=== PATIENT | male | born 1970 | race Caucasian/White ===

== ENCOUNTER 2016-10-17 08:53 | Emergency (ER) | payer OTHER, MEDICAID ==
[2016-10-17 09:08] VITALS: BP 149/89; PULSE 90; RESP 16; TEMP 97.7; O2SAT 94
--- NOTE | 2016-10-17 09:46 | UCPHY ---
H & P Time Seen by Provider: 10/17/16 09:37 Patient Type: Established HPI/ROS: This patient has an injury to the right upper arm. He works as a snow plow min and was using a snow shovel to clear sidewalk walking at a brisk pace and flexing his right arm when he suddenly ran into an immobile object which caused abrupt deceleration of the arm and onset of right upper anterior arm pain. He states the discomfort is moderate initially and now mild but he has difficulty raising his right arm above his head without assistance from the left arm. He has not taken any medications for this element. Occurred last night. ROS: No gross deformity to the shoulder or biceps per patient. He reports no numbness or tingling in the right upper extremity. No other injuries associated with this. 5 point ROS is otherwise negative. Past Medical/Surgical History: Otherwise healthy Smoking Status: Former smoker Physical Exam: Physical Exam Vital signs are normal. General: No acute distress HEENT: Atraumatic. Eyes: Pupils equal and react to light. Extraocular motions are intact. Lungs: No respiratory distress. Cardiac: Brisk capillary refill is intact throughout. Pulses are 2+ and symmetric in the affected extremity. Extremities: Atraumatic and normal except for right arm that exam is notable for minimal tenderness to the mid biceps with no deformity appreciated. There is no shoulder tenderness. He has mild increase in pain with biceps flexion but no deformity again. He is able to a hold his right arm above his head but has difficulty with process of AB duction. No difficulty with flexion. Skin: No rash or pallor. Neuro: Alert and oriented x3 with no sensorimotor deficits. Initial differential diagnosis: Biceps strain, doubt biceps tear, rotator cuff injury Constitutional: Initial Vital Signs Temperature (C) 36.5 C 10/17/16 09:06 Heart Rate 90 10/17/16 09:06 Respiratory Rate 16 10/17/16 09:06 Blood Pressure 149/89 H 10/17/16 09:06 O2 Sat (%) 94 10/17/16 09:06 O2 Delivery Mode Room Air Allergies/Adverse Reactions: PEPHALEXIN Allergy (Unknown, Uncoded 10/17/16 09:08) Unknown Home Medications: Medication Instructions Recorded Nasal [place] 02/07/14 Methocarbamol [Robaxin 750 mg (*)] 750 - 1,500 mg PO QID PRN #30 tab 10/17/16 MDM/Departure - [facility] ED Course/Re-evaluation: An Walter wrap is applied to the biceps. I counseled patient regarding muscle strain. We will start him on methocarbamol and encouraged decreased activity until symptoms improve. He will follow up with orthopedics-Dr. Torres if not improving with rest and time - Depart Disposition: Home, Routine, Self-Care Clinical Impression: Biceps muscle strain Qualifiers: Encounter type: initial encounter Laterality: right Qualifier Code: (S46.111A) Strain of muscle, fascia and tendon of long head of biceps, right arm, initial encounter Condition: Good Instructions: Muscle Strain (ED) Additional Instructions: Diagnosis: Biceps muscle strain Plan: Ice 20 minutes at a time to 3 times a day for the next few days Limit activity until symptoms improve Walter wrap for comfort Ibuprofen-600 mg per 6 hours as needed for pain Methocarbamol muscle relaxant in addition as needed. No driving, alcohol work on methocarbamol Your symptoms will likely worsened a bit over the next 2 days prior to improving in by days tender so after the incident you should feel improved. If you're not improving, call Dr. Torres-orthopedic physician to arrange follow-up appointment for further evaluation Prescriptions: Methocarbamol [Robaxin 750 mg (*)] 750 - 1,500 mg PO QID PRN #30 tab PRN Reason: Muscle Spasms Referrals: Domingo Alejo DO [Primary Care Provider] - As per Instructions Kaylee Torres MD [Medical Doctor] - As per Instructions - PQRS PQRS Measurement: NA
== END 2016-10-17 09:54 | disposition home or self-care (01) ==
LOC: CED 08:53
DX: S46.111A Strain of muscle, fascia and tendon of long head of biceps, right arm, initial encounter (principal); Y92.014 Private driveway to single-family (private) house as the place of occurrence of the external cause; Y93.29 Activity, other involving ice and snow; Y93.H1 Activity, digging, shoveling and raking; Y99.8 Other external cause status; Z87.891 Personal history of nicotine dependence
CPT/HCPCS: 99214-PO; G0463-PO

== ENCOUNTER → 2016-12-06 | Outpatient (CLI) | payer OTHER, MEDICAID | LOC: FIMAGING 13:27 | PROVIDERS: ATTEND Orthopaedic Surgery | DX: M75.121 Complete rotator cuff tear or rupture of right shoulder, not specified as traumatic (principal); M75.81 Other shoulder lesions, right shoulder; M19.011 Primary osteoarthritis, right shoulder ==

== ENCOUNTER 2017-02-16 19:27 | Emergency (ER) | payer OTHER, MEDICAID | END 2017-02-16 19:35 | disposition left against medical advice (07) | LOC: CED 19:27 | DX: Z53.21 Procedure and treatment not carried out due to patient leaving prior to being seen by health care provider (principal) ==